=== PATIENT | female | born 1995 | race Caucasian/White ===

== ENCOUNTER 2019-03-03 10:40 | Emergency (ER) | payer OTHER ==
[~2019-03-03] VITALS: Ht 149.9 cm; Wt 38.6 kg
== END 2019-03-03 15:54 | disposition home or self-care (01) ==
LOC: ER 10:40
DX: J11.1 Influenza due to unidentified influenza virus with other respiratory manifestations (principal); B96.0 Mycoplasma pneumoniae [M. pneumoniae] as the cause of diseases classified elsewhere

== ENCOUNTER 2020-06-21 09:50 | Emergency (ER) | payer OTHER ==
[~2020-06-21] VITALS: Ht 149.9 cm; Wt 44.0 kg
[2020-06-21] MEDS ORDERED: ACETAMINOPHEN500 M2 (13:30)
[2020-06-21] MEDS ORDERED: ULTRAM50 MG PO (13:40)
[2020-06-21] MEDS ORDERED: CELEBREX100 MG PO (13:40)
[2020-06-21] MEDS ORDERED: PEPCID AC20 MG PO (13:44)
[2020-06-21] MEDS ORDERED: VISTARIL25 MG PO (13:44)
[2020-06-21] MEDS ORDERED: ONDANSETRON ODT4 MG PO (13:44)
== END 2020-06-21 13:50 | disposition home or self-care (01) ==
LOC: ER 09:50
DX: M25.572 Pain in left ankle and joints of left foot (principal); M25.571 Pain in right ankle and joints of right foot; M25.542 Pain in joints of left hand; M25.541 Pain in joints of right hand; B34.9 Viral infection, unspecified

== ENCOUNTER 2020-11-11 08:45 | Emergency (ER) | payer OTHER ==
[~2020-11-11] VITALS: Ht 149.9 cm; Wt 43.1 kg
[~2020-11-11 08:45] MED LIST: ACETAMINOPHEN500 M2; CELEBREX100 MG PO; ONDANSETRON ODT4 MG PO; PEPCID AC20 MG PO; ULTRAM50 MG PO; VISTARIL25 MG PO
[2020-11-11] MEDS ORDERED: ZITHROMAX TRI-500 MG PO (12:43)
== END 2020-11-11 12:51 | disposition home or self-care (01) ==
LOC: ER 08:45
DX: B34.9 Viral infection, unspecified (principal); R07.0 Pain in throat; R05 Cough; Z03.818 Encounter for observation for suspected exposure to other biological agents ruled out

== ENCOUNTER → 2020-12-27 | Emergency (ER) | payer OTHER ==
[~2020-12-27] VITALS: Ht 157.5 cm; Wt 43.1 kg
[~2020-12-27] MED LIST changes: +ZITHROMAX TRI-500 MG PO
== END | disposition home or self-care (01) ==
LOC: ER 15:59
DX: A49.3 Mycoplasma infection, unspecified site (principal); Z03.818 Encounter for observation for suspected exposure to other biological agents ruled out

== ENCOUNTER 2021-07-07 22:58 | Emergency (ER) | payer OTHER ==
[~2021-07-07] VITALS: Ht 149.9 cm; Wt 43.1 kg
[2021-07-08] MEDS ORDERED: PYRIDIUM200 MG PO (06:35)
[2021-07-08] MEDS ORDERED: NAPROXEN375 MG PO (06:35)
[2021-07-08] MEDS ORDERED: BACTRIM DS TAB1 EACH PO (06:35)
== END 2021-07-08 08:28 | disposition home or self-care (01) ==
LOC: ER 22:58
DX: N30.90 Cystitis, unspecified without hematuria (principal); N39.0 Urinary tract infection, site not specified

== ENCOUNTER 2024-05-09 15:43 | Emergency (ER) | payer OTHER ==
[~2024-05-09] VITALS: Ht 162.6 cm; Wt 49.9 kg
[~2024-05-09 15:43] MED LIST changes: +ACETAMINOPHEN650 M2; +BACTRIM DS TAB1 EACH PO; +NAPROXEN375 MG PO; +PYRIDIUM200 MG PO
[2024-05-09 20:51] LABS: HEMATOCRIT 37.2 % (36.0-45.00); HEMOGLOBIN 12.4 g/dL (12.0-15.00); MEAN CELL VOLUME 83.5 fL (80.00-100.00); MEAN CORPUSCULAR HEMOGLOBIN 27.7 pg (27.00-32.0); MEAN CORPUSCULAR HGB CONC 33.2 g/dl (32.0-36.0); PLATELET COUNT 320 K/uL (150-450); RED BLOOD COUNT 4.46 M/uL (4.00-6.00); RED CELL DISTRIBUTION WIDTH 13.7 % (11.5-14.5)
[2024-05-09 21:32] LABS: ALBUMIN 4.2 gm/dL (3.4-5.0); BILIRUBIN TOTAL 0.4 mg/dL (0.3-1.2); CALCIUM 9.6 mg/dL (8.5-10.1); CREATININE SERUM 0.67 mg/dL (0.55-1.02); GFR 102.66; GLOBULINA 4.1 G/DL (2.4-3.5); POTASSIUM 4.32 mEq/L (3.5-5.1); TOTAL PROTEIN 8.3 gm/dL (6.4-8.2)
== END 2024-05-09 22:39 | disposition home or self-care (01) ==
LOC: ER 15:45
PROVIDERS: Preventive Medicine Public Health & General Preventive Medicine
DX: R20.2 Paresthesia of skin (principal)